=== PATIENT | female | born 1990 | race African-American/Black ===

== ENCOUNTER 2019-11-16 15:26 | Emergency (ER) | payer SELFPAY ==
[~2019-11-16] VITALS: Ht 162.6 cm; Wt 59.0 kg
[~2019-11-16 15:26] MED LIST: COLACE100 MG ORAL; KEFLEX500 MG ORAL; MACROBID100 MG ORAL; MILK OF MA2400 MG/10 ORAL; RANITIDINE HCL150 MG ORAL; no home meds
[2019-11-16 15:29] VITALS: BP 120/67
--- NOTE | 2019-11-16 15:35 | NUR ---
ED Nurse Note: Patient from home and walked in due to abd pain with nausea and diarrhea since last night. Denies vomiting. No coughing or fever reports. AAO x4, ambulates with steady gait. No respiratory distress.
--- NOTE | 2019-11-16 15:39 | NUR ---
Note románone in EDM - 11/16/19 at 1558 by IRON ED Nurse Note: Patient from home and walked in due to abd pain with nausea and diarrhea since last night. Denies vomiting. No coughing or fever reports. AAO x4, ambulates with steady agit. No respiratory distress.
[2019-11-16] MEDS ORDERED: Ketorolac 30mg Inj IV ONE (15:45)
--- NOTE | 2019-11-16 15:52 | NUR ---
ED Nurse Note: Collected blood and urine then sent.
[2019-11-16 16:06] LABS: BASOPHILS % (AUTO) 1.7 % (0.0-2.0); HEMATOCRIT 37.2 % (37.0-47.0); LYMPHOCYTES % (AUTO) 28.9 % (20.0-45.0); MEAN CORPUSCULAR VOLUME 87 FL (80-99); MONOCYTES % (AUTO) 9.7 % (1.0-10.0); NEUTROPHILS % (AUTO) 58.6 % (45.0-75.0); PLATELET COUNT 337 K/UL (150-450); RED BLOOD COUNT 4.27 M/UL (4.20-5.40); RED CELL DISTRIBUTION WIDTH 13.1 % (11.6-14.8)
[2019-11-16 16:08] LABS: APPEARANCE,URINE SLIGHTLY CLOUDY; BILIRUBIN, URINE NEGATIVE (NEGATIVE); GLUCOSE, URINE (UA) NEGATIVE (NEGATIVE); KETONES,URINE 1+ (NEGATIVE); LEUKOCYTE ESTERASE ,URINE 1+ (NEGATIVE); NITRITE,URINE NEGATIVE (NEGATIVE); PH,URINE 6 (4.5-8.0); PROTEIN,URINE 1+ (NEGATIVE); UROBILINOGEN,URINE 1 MG/DL (0.0-1.0)
[2019-11-16 16:10] LABS: COLOR,URINE YELLOW
--- NOTE | 2019-11-16 16:13 | NUR ---
ED Nurse Note: Patient talking on her phone in full sentences and laughing.
[2019-11-16 16:18] LABS: ANION GAP 6 mmol/L (5-15); BLOOD UREA NITROGEN 8 mg/dL (7-18); CARBON DIOXIDE 29 MMOL/L (21-32); CHLORIDE 105 MMOL/L (98-107); CREATININE 0.8 MG/DL (0.55-1.30); POTASSIUM 3.5 MMOL/L (3.5-5.1); SODIUM 140 MMOL/L (136-145)
[2019-11-16 16:22] LABS: ALANINE AMINOTRANSFERASE 13 U/L (12-78); ALBUMIN 3.8 G/DL (3.4-5.0); ALBUMIN/GLOBULIN RATIO 1.1 (1.0-2.7); ALKALINE PHOSPHATASE 65 U/L (46-116); ASPARTATE AMINO TRANSFERASE 15 U/L (15-37); BILIRUBIN,TOTAL 0.5 MG/DL (0.2-1.0)
--- NOTE | 2019-11-16 16:34 | Emergency Room Report ---
History of Present Illness General Chief Complaint: Abdominal Pain Source: Patient Present Illness HPI 28-year-old female with no known significant hospital history here complaining of 1 day of epigastric abdominal pain with few bouts of nonbloody diarrhea and feeling nauseated without vomiting. Complains of chills however has normal temperature. Denies cough or congestion, shortness of breath, loss of taste or smell. Denies any contact with anybody who is positive for COVID. Patient request to be tested for call back. Oxygenation within normal limits, afebrile, heart rate within normal limits. Denies any urinary frequency however complains of urinary urgency and pressure in the suprapubic area. Denies being sexually active denies . Denies any drug use, tobacco smoke, alcohol intake. Reports that her abdominal pain started about an hour after having [employer] last night which consisted of meat with some unknown sauce. Rates the pain 5 out of 10 without radiation. Allergies: Coded Allergies: No Known Allergies (Unverified , 11/20/12) COVID-19 Screening Contact w/high risk pt: No Experienced COVID-19 symptoms?: No COVID-19 Testing performed TAPE EDGE MACHINE OPERATOR: No Patient History Past Medical History: see triage record Past Surgical History: none Pertinent Family History: none Last Menstrual Period: 10/24/19 Now: No Immunizations: UTD Reviewed Nursing Documentation: PMH: Agreed; PSxH: Agreed Nursing Documentation-PMH Past Medical History: No Stated History Review of Systems All Other Systems: negative except mentioned in HPI Physical Exam Vital Signs Date Time Temp Pulse Resp B/P (MAP) Pulse Ox O2 Delivery O2 Flow Rate FiO2 11/16/19 15:29 98.4 93 18 120/67 (84) 98 Room Air Sp02 EP Interpretation: reviewed, normal General Appearance: no apparent distress, alert, GCS 15, non-toxic Head: normocephalic, atraumatic Eyes: bilateral eye normal inspection, bilateral eye PERRL ENT: hearing grossly normal, normal pharynx, no angioedema, normal voice Neck: full range of motion, supple, supple/symm/no masses Respiratory: chest non-tender, lungs clear, normal breath sounds, no rhonchi, no respiratory distress, no retraction, speaking full sentences Cardiovascular #1: regular rate, rhythm, no edema Cardiovascular #2: 2+ carotid (R), 2+ carotid (L), 2+ radial (R), 2+ radial (L), 2+ dorsalis pedis (R), 2+ dorsalis pedis (L) Gastrointestinal: normal bowel sounds, non tender, soft, no mass, no organomegaly, no peritonitis, no bruit, non-distended, no guarding, no hernia, no pulsatile mass, no rebound Genitourinary: no CVA tenderness Musculoskeletal: back normal Neurologic: alert, motor strength/tone normal, oriented x3, sensory intact, responsive, speech normal Psychiatric: judgement/insight normal, memory normal, mood/affect normal, no suicidal/homicidal ideation Skin: no rash Lymphatic: no adenopathy Medical Decision Making PA Attestation All my diagnosis and treatment plans were reviewed ad discussed with my supervising physician Dr. Diggs Diagnostic Impression: Primary Impression: Abdominal pain Additional Impressions: UTI (lower urinary tract infection) Diarrhea Methamphetamine abuse Marijuana abuse ER Course 28-year-old female with no known significant hospital history here complaining of 1 day of epigastric abdominal pain with few bouts of nonbloody diarrhea and feeling nauseated without vomiting. Complains of chills however has normal temperature. Denies cough or congestion, shortness of breath, loss of taste or smell. Denies any contact with anybody who is positive for COVID. Patient request to be tested for call back. Oxygenation within normal limits, afebrile, heart rate within normal limits. Denies any urinary frequency however complains of urinary urgency and pressure in the suprapubic area. Denies being sexually active denies . Denies any drug use, tobacco smoke, alcohol intake. Reports that her abdominal pain started about an hour after having [employer] last night which consisted of meat with some unknown sauce. Rates the pain 5 out of 10 without radiation. Ddx considered but are not limited to: appendicitis, cholecystis, gastritis, gastroenteritis, UTI, pyelonephritis, cannabis hyperemesis, Vital signs: are WNL, pt. is afebrile H&PE are most consistent with: Abdominal pain, diarrhea, UTI ORDERS: CBC, CMP, lipase, UA, tox screen, EtOH level, urine test, Macrobid, loperamide, Pepcid, Zofran ED INTERVENTIONS: NS bolus, Pepcid, Zofran, Toradol At this time no imaging needed patient vital signs are within normal limits, blood work urine results do not suggest any acute conditions and belly is soft without any guarding. However advised patient to return to the emergency room if worsening symptoms. DISCHARGE: At this time pt. is stable for d/c to home. Will provide printed patient care instructions, and any necessary prescriptions. Care plan and follow up instructions have been discussed with the patient prior to discharge. Advised patient to get tested for covid at this time I advised her that we do not routinely test for testing as they are reserved for hypoxic/tachycardic/febrile patients who require admission or at discretion of ordering physician in case a special imaging or breathing treatment needed. Her symptoms started most likely secondary to the restaurants that she ingested however she still needs to get tested for cold. Patient to follow-up with primary care provider. Patient also requesting a dose of antibiotics here and reported that does not want to swallow any antibiotics here. Last Vital Signs Date Time Temp Pulse Resp B/P (MAP) Pulse Ox O2 Delivery O2 Flow Rate FiO2 11/16/19 15:39 93 18 Room Air 11/16/19 15:29 98.4 120/67 98 Disposition: HOME, SELF-CARE Condition: Stable Scripts Loperamide HCl (Loperamide) 2 Mg Capsule 2 MG ORAL Q8HR, #20 CAP 0 Refills Prov: Scott Del Castillo 11/16/19 Nitrofurantoin Monohyd/M-Cryst* (MACROBID 100 MG*) 100 Mg Capsule 100 MG ORAL EVERY 12 HOURS for 7 Days, #14 CAP Prov: Scott Del Castillo 11/16/19 Famotidine* (Pepcid 20mg tablet*) 20 Mg Tablet 20 MG ORAL DAILY for Gerd, #30 TAB 0 Refills Prov: Scott Del Castillo 11/16/19 Ondansetron (Zofran) 4 Mg Tablet 4 MG ORAL Q6H PRN for Nausea & Vomiting, #14 TAB Prov: Scott Del Castillo 11/16/19 Patient Instructions: Abdominal Pain, Adult, Diarrhea, Adult, [id number], Urinary Tract Infection, [id number] Additional Instructions: Take medication as directed, increase oral hydration especially electrolyte water, keep a brat diet, follow-up with primary care doctor, if worsening symptoms return to the emergency room. Scott Del Castillo Nov 16, 2019 16:34
[2019-11-16] MEDS ORDERED: FAMOTIDINE20 MG ORAL (16:37)
[2019-11-16] MEDS ORDERED: IMODIUM2 MG ORAL (16:37)
[2019-11-16] MEDS ORDERED: ZOFRAN4 M1 ORAL (16:37)
[2019-11-16] MEDS ORDERED: NITROFURANTOIN100 M2 ORAL (16:37)
[2019-11-16] MEDS ORDERED: Lidocaine 1% MPF 10mg/ml 5ml INJ ONE (16:45)
[2019-11-16 16:48] VITALS: BP 116/75
--- NOTE | 2019-11-16 16:48 | NUR ---
ER DISCHARGE NOTE: Patient is cleared to be discharged per PA, pt is aox4, on room air, with stable vital signs. pt was given dc and prescription instructions, pt was able to verbalize understanding, pt id band and iv site removed without complications. pt is able to ambulate with steady gait. pt took all belongings.
== END 2019-11-16 16:48 | disposition home or self-care (01) ==
LOC: EMR 16:04
DX: N39.0 Urinary tract infection, site not specified (principal); R19.7 Diarrhea, unspecified; F15.10 Other stimulant abuse, uncomplicated; F12.10 Cannabis abuse, uncomplicated
CPT/HCPCS: 36415; 80053; 80307; 81003; 81025; 83690; 85025; 96361; 96372; 96374; 96375; 99284; G0480; J0696; J1885; J2405; J7030; S0028

== ENCOUNTER 2020-01-06 21:45 | Emergency (ER) | payer SELFPAY ==
[~2020-01-06] VITALS: Ht 162.6 cm; Wt 63.5 kg
[~2020-01-06 21:45] MED LIST changes: +FAMOTIDINE20 MG ORAL; +IMODIUM2 MG ORAL; +NITROFURANTOIN100 M2 ORAL; +ZOFRAN4 M1 ORAL
--- NOTE | 2020-01-06 22:15 | NUR ---
ED Nurse Note: Patient walked into ED with c/o flu like symptoms onset 3-4 days. Pt c/o sore thoat that gets worse during swallowing, pain 09/22. Pt tested negative for Covid 3 days ago.
--- NOTE | 2020-01-06 22:16 | NUR ---
ED Nurse Note: ERMD at bedside
[2020-01-06] MEDS ORDERED: CHLORASEPTIC MA30 ML MM (22:20)
[2020-01-06] MEDS ORDERED: IBUPROFEN600 M1 ORAL (22:20)
--- NOTE | 2020-01-06 22:20 | Emergency Room Report ---
History of Present Illness General Chief Complaint: Flu Like Symptoms Source: Patient Present Illness [facility] This is a 29-year-old female with no significant past medical history. She presents with chief complaint of sore throat and congestion. Onset for last 3 to 4 days. Throat pain is worse with swallowing. Worse with eating. Better with rest. Pain is 8 out of 10. Also has congestion and runny nose. She had Covid testing on Monday, 3 days ago. It was negative. Allergies: Coded Allergies: No Known Allergies (Unverified , 11/20/12) COVID-19 Screening Contact w/high risk pt: No Experienced COVID-19 symptoms?: Yes COVID-19 Testing performed COMPONENT ENGINEER: No Patient History Past Medical History: see triage record, old chart reviewed Past Surgical History: none Pertinent Family History: none Social History: Denies: smoking Last Menstrual Period: 12/03/2019 Now: No Immunizations: other Reviewed Nursing Documentation: PMH: Agreed; PSxH: Agreed Nursing Documentation-PMH Past Medical History: No Stated History Review of Systems Eye: Denies: eye pain, blurred vision ENT: Reports: nose congestion, throat pain; Denies: ear pain, throat swelling Respiratory: Reports: cough; Denies: shortness of breath Cardiovascular: Denies: chest pain, palpitations Gastrointestinal: Denies: abdominal pain, diarrhea, nausea, vomiting Musculoskeletal: Denies: back pain, joint pain Skin: Denies: rash Neurological: Denies: headache, numbness Endocrine: Denies: increased thirst, increased urine Hematologic/Lymphatic: Denies: easy bruising All Other Systems: negative except mentioned in HPI Physical Exam Vital Signs Date Time Temp Pulse Resp B/P (MAP) Pulse Ox O2 Delivery O2 Flow Rate FiO2 01/06/20 22:02 99.0 69 18 95 Room Air Vitals normal Sp02 EP Interpretation: reviewed, normal General Appearance: well appearing, no apparent distress, alert Head: normocephalic, atraumatic Eyes: bilateral eye PERRL, bilateral eye EOMI ENT: hearing grossly normal, normal pharynx Neck: full range of motion, supple, no meningismus Respiratory: chest non-tender, lungs clear, normal breath sounds Cardiovascular #1: regular rate, rhythm, no murmur Gastrointestinal: normal bowel sounds, non tender, no mass, no organomegaly, no bruit, non-distended Musculoskeletal: back normal, normal range of motion, gait/station normal Psychiatric: mood/affect normal Medical Decision Making Diagnostic Impression: Primary Impression: URI (upper respiratory infection) Qualified Codes: J06.9 - Acute upper respiratory infection, unspecified ER Course Patient presents with a viral illness. No evidence of meningitis, pneumonia, sepsis or other serious bacterial infection. She looks well. No rest or distress. I see no need for repeat Covid testing since she had it done 3 days ago. Last Vital Signs Date Time Temp Pulse Resp B/P (MAP) Pulse Ox O2 Delivery O2 Flow Rate FiO2 01/06/20 22:02 99.0 69 18 95 Room Air Status: unchanged Disposition: HOME, SELF-CARE Condition: Stable Scripts Phenol/Glycerin (Chloraseptic Max [place]) 30 Ml [place] 30 ML MM QID, #1 SPRAY Prov: Jerry Mejia MD 01/06/20 Ibuprofen* (MOTRIN*) 600 Mg Tablet 600 MG ORAL Q6H PRN for For Pain, #30 TAB 0 Refills Prov: Jerry Mejia MD 01/06/20 Additional Instructions: Increase fluids. Salt water gargle. Follow-up with your doctor in 7 days. Return if worse. Jerry Mejia MD Jan 06, 2020 22:20
[2020-01-06 22:31] VITALS: BP 147/87
--- NOTE | 2020-01-06 22:31 | NUR ---
ER DISCHARGE NOTE: Patient is cleared to be discharged per ERMD, pt is aox4, on room air, with stable vital signs. pt was given dc and prescription instructions, pt was able to verbalize understanding, pt id band removed. pt is able to ambulate with steady gait. pt took all belongings.
== END 2020-01-06 22:15 | disposition home or self-care (01) ==
LOC: EMR 22:00
DX: J06.9 Acute upper respiratory infection, unspecified (principal)
CPT/HCPCS: 99281

== ENCOUNTER 2020-03-14 11:44 | Emergency (ER) | payer MEDICAID ==
[~2020-03-14] VITALS: Ht 162.6 cm; Wt 49.9 kg
[~2020-03-14 11:44] MED LIST changes: +CHLORASEPTIC MA30 ML MM; +IBUPROFEN600 M1 ORAL
--- NOTE | 2020-03-14 12:05 | NUR ---
ED Nurse Note: pt presents to ED c/o "bladder pressure" upon urination. pt denies any blood or pain, states it only happens when she urinates. pt reports that she is 12 weeks , confirmed by US at her [facility] [facility] office 2 days ago.
[2020-03-14 12:06] VITALS: BP 119/74
[2020-03-14 12:25] LABS: APPEARANCE,URINE CLOUDY; BILIRUBIN, URINE NEGATIVE (NEGATIVE); GLUCOSE, URINE (UA) NEGATIVE (NEGATIVE); KETONES,URINE 2+ (NEGATIVE); LEUKOCYTE ESTERASE ,URINE 3+ (NEGATIVE); NITRITE,URINE POSITIVE (NEGATIVE); PH,URINE 6 (4.5-8.0); PROTEIN,URINE 4+ (NEGATIVE); UROBILINOGEN,URINE NORMAL MG/DL (0.0-1.0)
[2020-03-14] MEDS ORDERED: Acetaminophen 500mg (ES) tab ORAL ONE (12:30)
[2020-03-14 12:39] LABS: COLOR,URINE YELLOW
--- NOTE | 2020-03-14 12:39 | Emergency Room Report ---
History of Present Illness General Chief Complaint: Abdominal Pain Source: Patient Present Illness HPI Patient presents with dysuria, lower back pain over the last couple of days. It is was worse last night. She felt chilled but had no documented fever. She did take Tylenol last night. She rates the pain 7-8/10 at this time and fairly constant but also with dysuria. The patient states that pain rates directly towards her back and not up to the kidney areas. Patient is 12 weeks . She denies nausea, vomiting or diarrhea. She has had bladder infections before and states it feels like this. She had an ultrasound on Monday it is Monday now. The ultrasound was normal. She was seen by her DAIRY FARM SUPERVISOR at that time. No cramping. No vag bleed or d/c. The patient denies exposure to Covid positive contacts. No sore throat, chest pain, palpitations, shortness of breath, joint pain, rashes, visual changes, dizziness, headache. Allergies: Coded Allergies: No Known Allergies (Unverified , 11/20/12) COVID-19 Screening Contact w/high risk pt: No Experienced COVID-19 symptoms?: No COVID-19 Testing performed BOTTLE BLOWER: Yes COVID-19 Screening: Negative COVID-19 COVID-19 Testing Source: 01/2020 Patient History Past Medical History: see triage record Social History: Denies: smoking Social History Narrative here with child Now: Yes - 12 weeks Reviewed Nursing Documentation: PMH: Agreed; PSxH: Agreed Nursing Documentation-PMH Past Medical History: No Stated History Review of Systems All Other Systems: negative except mentioned in HPI Physical Exam Vital Signs Date Time Temp Pulse Resp B/P (MAP) Pulse Ox O2 Delivery O2 Flow Rate FiO2 03/14/20 11:50 99.0 108 17 119/74 (89) 100 Room Air Sp02 EP Interpretation: reviewed, normal General Appearance: well appearing, no apparent distress, GCS 15 Head: normocephalic Eyes: bilateral eye normal inspection, bilateral eye PERRL, bilateral eye EOMI ENT: other - Wearing a mask Neck: full range of motion, supple Respiratory: lungs clear, normal breath sounds Cardiovascular #1: regular rate, rhythm Cardiovascular #2: 2+ radial (R) Gastrointestinal: normal inspection, normal bowel sounds, no mass, non- distended, no guarding, no rebound, tenderness - Reported suprapubic area Genitourinary: no CVA tenderness Musculoskeletal: back normal, normal range of motion, gait/station normal Neurologic: alert, oriented x3, grossly normal Psychiatric: mood/affect normal Skin: no rash, warm/dry Medical Decision Making Diagnostic Impression: Primary Impression: UTI in Qualified Codes: O23.41 - Unspecified infection of urinary tract in , first trimester Additional Impression: 12 weeks gestation of ER Course Patient presents with lower abdominal pain radiating to her back and also dy suria all months . Differential includes cystitis, pyelonephritis, threatened miscarriage amongst others. She is not toxic at this time. Vital signs are stable. There is no evidence of vaginal bleeding or discharge and the pain is constant which makes threatened miscarriage less likely in the face of a normal ultrasound earlier this week. Urinalysis is indicated. The patient will be treated with Tylenol also. Urinalysis with too numerous to count white cells and nitrite positive. Patient given Keflex here. She has some improvement after Tylenol. Discussed the risk of urinary tract infection and for threatened miscarriage. Also discussed close outpatient follow-up and observation. Patient stable for outpatient observation and treatment. Laboratory Tests Test 03/14/20 12:09 Urine Color Yellow Urine Appearance Cloudy Urine pH 6 (4.5-8.0) Urine Specific [place] 1.015 (1.005-1.035) Urine Protein 4+ (NEGATIVE) H Urine Glucose (UA) Negative (NEGATIVE) Urine Ketones 2+ (NEGATIVE) H Urine Blood 4+ (NEGATIVE) H Urine Nitrite Positive (NEGATIVE) H Urine Bilirubin Negative (NEGATIVE) Urine Urobilinogen Normal MG/DL (0.0-1.0) Urine Leukocyte Esterase 3+ (NEGATIVE) H Urine RBC 10-15 /HPF (0 - 2) H Urine WBC Tntc /HPF (0 - 2) H Urine Squamous Epithelial Cells Few /LPF (NONE/OCC) Urine Bacteria Moderate /HPF (NONE) H Last Vital Signs Date Time Temp Pulse Resp B/P (MAP) Pulse Ox O2 Delivery O2 Flow Rate FiO2 03/14/20 12:59 99.0 94 17 119/74 100 Room Air Status: improved Disposition: HOME, SELF-CARE Condition: Improved Scripts Cephalexin* (KEFLEX*) 500 Mg Capsule 500 MG ORAL EVERY 6 HOURS, #28 CAP Prov: Osorio Tyler MD 03/14/20 Referrals: NON PHYSICIAN (PCP) Osorio Tyler MD Mar 14, 2020 12:39
[2020-03-14] MEDS ORDERED: CEPHALEXIN500 MG ORAL (12:45)
[2020-03-14] MEDS ORDERED: Cephalexin 500mg cap ORAL ONE (12:45)
[2020-03-14 12:59] VITALS: BP 119/74
--- NOTE | 2020-03-14 12:59 | NUR ---
ER DISCHARGE NOTE: Patient is cleared to be discharged per ERMD, pt is aox4, on room air, with stable vital signs. pt was given dc and prescription instructions as well as f/u with OPERATIONS SUPERVISOR [employer]ANING. pt was able to verbalize understanding, and states she has an appt scheduled for monday. pt id band removed without complications. pt is able to ambulate with steady gait. pt took all belongings.
== END 2020-03-14 13:00 | disposition home or self-care (01) ==
LOC: EMR 12:21
DX: O23.41 Unspecified infection of urinary tract in pregnancy, first trimester (principal); Z3A.12 12 weeks gestation of pregnancy
CPT/HCPCS: 81003; 87086; Z7502; 99283